=== PATIENT | female | born 1950 | race Caucasian/White ===

== ENCOUNTER → 2017-10-24 | Outpatient (CLI) | payer MEDICARE, OTHER ==
[~2017-10-24] MED LIST: ALPR0.5T GT; ALPR1TAB7 PO; ASPI81TA27 PO; FER325T PO; FLUO20CA19 PO; HALO2CON8 PO; IPRASOL41 IN; LAM100T PO; LORA2CON5 PO; MIDO5TAB PO; MORP2INJ4 PO; NOR10T PO; NUTR-709 PO
[2017-10-24 13:25] LABS: Basophils % (auto) 0.8 % (0.0-2.0); Eosinophils # (auto) 0.7 uL
[2017-10-24 13:27] LABS: Basophils # (auto) 0.1 uL; Hematocrit 37.5 % (36.0-46.0); Hemoglobin 12.6 g/dL (12.2-16.2); Lymphocytes # (auto) 1.6 uL; Lymphocytes % (auto) 24.1 % (10.0-50.0); Mean Corpuscular Hemoglobin 34.5 pg (28.0-32.0); Mean Corpuscular Hgb Conc. 33.7 g/dL (32.0-36.0); Mean Corpuscular Volume 102.5 fL (80.0-100.0); Monocytes # (auto) 0.5 uL; Monocytes % (auto) 7.3 % (0.0-12.0); Neutrophils # (auto) 3.8 uL; Neutrophils % (auto) 57.8 % (37.0-80.0); Nucleated Red Blood Cells % 0.2 %; Platelet Count (auto) 186 10^3/uL (140-450); Red Blood Cells 3.65 10^6/uL (4.0-5.20); Red Cell Distribution Width 14.8 % (11.8-14.3); White Blood Cell 6.5 10^3/uL (4.4-10.8)
[2017-10-24 13:40] LABS: INR 0.96 (0.9-1.15); Partial Thromboplastin Time 24.7 sec (23.78-33.04); Prothrombin Time 10.3 sec (9.27-12.13)
[2017-10-24 14:14] LABS: Urine Bacteria NONE SEEN /hpf (None Seen); Urine Blood Negative /uL (Negative); Urine Hyaline Cast FEW /lpf (0 - 2); Urine Mucus FEW (None Seen); Urine Specific Gravity 1.014 (1.001-1.035); Urine WBC 8 /hpf (0 - 5)
[2017-10-24 14:49] LABS: Albumin 3.5 g/dL (3.4-5.0); Calcium 9.1 mg/dL (8.5-10.1); Potassium 4.6 mmol/L (3.5-5.1)
[2017-10-24 14:52] LABS: Bilirubin, Total 0.5 mg/dL (0.2-1.0); Total Protein 7.2 g/dL (6.4-8.2)
== END | disposition home or self-care (01) ==
LOC: LAB 12:45
PROVIDERS: ATTEND Nurse Practitioner
DX: Z01.818 Encounter for other preprocedural examination (principal); F33.9 Major depressive disorder, recurrent, unspecified; I10 Essential (primary) hypertension; Z79.899 Other long term (current) drug therapy; Z86.2 Personal history of diseases of the blood and blood-forming organs and certain disorders involving the immune mechanism
CPT/HCPCS: 36415; 80053; 81001; 85025; 85610; 85730

== ENCOUNTER 2017-11-02 12:19 | Emergency (ER) | payer MEDICARE, OTHER ==
[~2017-11-02] VITALS: Ht 157.5 cm; Wt 64.0 kg
[2017-11-02 12:49] VITALS: BP 108/72
[2017-11-02] MEDS ORDERED: NALBUPHINE HCL 10 MG/1ml INJECTION IM ONE (13:15)
== END 2017-11-02 13:49 | disposition home or self-care (01) ==
LOC: ER 12:19
DX: M54.5 Low back pain (principal); M48.061 Spinal stenosis, lumbar region without neurogenic claudication; G89.29 Other chronic pain; M19.90 Unspecified osteoarthritis, unspecified site; I10 Essential (primary) hypertension; Z90.49 Acquired absence of other specified parts of digestive tract; Z79.899 Other long term (current) drug therapy; Z90.710 Acquired absence of both cervix and uterus
CPT/HCPCS: 96372; 99283; J2300

== ENCOUNTER → 2018-01-19 | Outpatient (CLI) | payer MEDICARE, OTHER ==
[2018-01-19 12:32] LABS: Urine Bacteria FEW /hpf (None Seen); Urine Blood Negative /uL (Negative); Urine Mucus FEW (None Seen); Urine Specific Gravity 1.015 (1.001-1.035); Urine WBC 12 /hpf (0 - 5)
[2018-01-19 12:41] LABS: Basophils # (auto) 0 uL; Lymphocytes # (auto) 1.3 uL; Monocytes # (auto) 0.4 uL; Neutrophils # (auto) 3.7 uL; Platelet Count (auto) 192 10^3/uL (140-450)
[2018-01-19 12:45] LABS: Potassium 4.3 mmol/L (3.5-5.1)
[2018-01-19 12:46] LABS: Basophils % (auto) 0.8 % (0.0-2.0); Eosinophils # (auto) 0.6 uL; Eosinophils % (auto) 9.4 % (0.0-7.0); Hematocrit 40.7 % (36.0-46.0); Hemoglobin 13.6 g/dL (12.2-16.2); Lymphocytes % (auto) 21.9 % (10.0-50.0); Mean Corpuscular Hemoglobin 35.2 pg (28.0-32.0); Mean Corpuscular Hgb Conc. 33.5 g/dL (32.0-36.0); Mean Corpuscular Volume 105.4 fL (80.0-100.0); Monocytes % (auto) 6.6 % (0.0-12.0); Neutrophils % (auto) 61.3 % (37.0-80.0); Nucleated Red Blood Cells % 0.3 %; Red Blood Cells 3.86 10^6/uL (4.0-5.20); Red Cell Distribution Width 14.2 % (11.8-14.3); White Blood Cell 6.1 10^3/uL (4.4-10.8)
[2018-01-19 12:54] LABS: BUN/Creatinine Ratio 9.2; Bilirubin, Total 0.5 mg/dL (0.2-1.0); Calcium 10.4 mg/dL (8.5-10.1); Total Protein 8.4 g/dL (6.4-8.2)
== END | disposition home or self-care (01) ==
LOC: LAB 11:12
PROVIDERS: ATTEND Nurse Practitioner
DX: E78.5 Hyperlipidemia, unspecified (principal); E31.8 Other polyglandular dysfunction
CPT/HCPCS: 36415; 80053; 80061; 80178; 81001; 84443; 85025

== ENCOUNTER → 2018-04-20 | Outpatient (CLI) | payer MEDICARE, OTHER ==
[2018-04-20 11:45] LABS: Potassium 4.1 mmol/L (3.5-5.1)
[2018-04-20 11:56] LABS: Albumin 3.5 g/dL (3.4-5.0); BUN/Creatinine Ratio 15.9; Bilirubin, Total 0.6 mg/dL (0.2-1.0); Calcium 9.6 mg/dL (8.5-10.1); Total Protein 7.2 g/dL (6.4-8.2)
== END | disposition home or self-care (01) ==
LOC: LAB 10:43
PROVIDERS: ATTEND Internal Medicine
DX: I10 Essential (primary) hypertension (principal); E03.9 Hypothyroidism, unspecified
CPT/HCPCS: 36415; 80053; 84439; 84443

== ENCOUNTER → 2018-04-26 | Outpatient (CLI) | payer MEDICARE, OTHER | END | disposition home or self-care (01) | LOC: LAB 14:24 | PROVIDERS: ATTEND Internal Medicine | DX: E03.9 Hypothyroidism, unspecified (principal); I10 Essential (primary) hypertension | CPT/HCPCS: 82270 ==

== ENCOUNTER → 2018-06-18 | Outpatient (CLI) | payer MEDICARE, OTHER ==
[2018-06-18 12:31] LABS: Urine Bacteria NONE SEEN /hpf (None Seen); Urine Blood Negative /uL (Negative); Urine Mucus FEW (None Seen); Urine Specific Gravity 1.016 (1.001-1.035); Urine WBC 21 /hpf (0 - 5)
[2018-06-18 12:35] LABS: Basophils # (auto) 0 uL; Basophils % (auto) 0.8 % (0.0-2.0); Eosinophils # (auto) 0.3 uL; Eosinophils % (auto) 7.6 % (0.0-7.0); Hematocrit 38.9 % (36.0-46.0); Hemoglobin 12.6 g/dL (12.2-16.2); Lymphocytes % (auto) 23.2 % (10.0-50.0); Mean Corpuscular Hemoglobin 31.5 pg (28.0-32.0); Mean Corpuscular Hgb Conc. 32.5 g/dL (32.0-36.0); Mean Corpuscular Volume 96.9 fL (80.0-100.0); Monocytes # (auto) 0.3 uL; Neutrophils # (auto) 2.7 uL; Neutrophils % (auto) 61.4 % (37.0-80.0); Platelet Count (auto) 173 10^3/uL (140-450); Red Blood Cells 4.01 10^6/uL (4.0-5.20); Red Cell Distribution Width 14.7 % (11.8-14.3); White Blood Cell 4.4 10^3/uL (4.4-10.8)
[2018-06-18 12:54] LABS: INR 0.92 (0.9-1.15); Partial Thromboplastin Time 24.6 sec (23.78-33.04); Prothrombin Time 9.9 sec (9.27-12.13)
[2018-06-18 12:56] LABS: Potassium 4.5 mmol/L (3.5-5.1)
[2018-06-18 13:07] LABS: Alcohol, Urine < 3.0 mg/dL (0-5); Amphetamine Screen, Urine NEGATIVE (NEGATIVE); Barbiturate Scree,Urine NEGATIVE (NEGATIVE); Benzodiazephine Screen, Urine NEGATIVE (NEGATIVE); Cannabinoid Screen, Urine NEGATIVE (NEGATIVE); Cocaine Screen, Urine NEGATIVE (NEGATIVE); Opiate Scree,Urine NEGATIVE (NEGATIVE); Phencyclidine Screen, Urine NEGATIVE (NEGATIVE)
[2018-06-18 13:08] LABS: Albumin 3.8 g/dL (3.4-5.0); Bilirubin, Total 0.7 mg/dL (0.2-1.0); Calcium 10.4 mg/dL (8.5-10.1); Total Protein 7.6 g/dL (6.4-8.2)
[2018-06-18 13:16] LABS: Free T4 (Free Thyroxine) 0.87 ng/dL (0.89-1.76)
[2018-06-18 13:17] LABS: Folate (Folic Acid) 15.87 ng/mL (5.38-24)
== END | disposition home or self-care (01) ==
LOC: LAB 10:44
PROVIDERS: ATTEND Internal Medicine
DX: E03.9 Hypothyroidism, unspecified (principal); I10 Essential (primary) hypertension; R06.02 Shortness of breath; E11.65 Type 2 diabetes mellitus with hyperglycemia; F11.20 Opioid dependence, uncomplicated
CPT/HCPCS: 36415; 80053; 80061; 80178; 80307; 81001; 82607; 82746; 83036; 84439; 84443; 85025; 85610; 85730

== ENCOUNTER → 2018-07-06 | Outpatient (CLI) | payer MEDICARE, OTHER ==
[2018-07-06 16:11] LABS: Alcohol, Urine < 3.0 mg/dL (0-5); Amphetamine Screen, Urine NEGATIVE (NEGATIVE); Barbiturate Scree,Urine NEGATIVE (NEGATIVE); Benzodiazephine Screen, Urine NEGATIVE (NEGATIVE); Cannabinoid Screen, Urine NEGATIVE (NEGATIVE); Cocaine Screen, Urine NEGATIVE (NEGATIVE); Opiate Scree,Urine NEGATIVE (NEGATIVE); Phencyclidine Screen, Urine NEGATIVE (NEGATIVE)
== END | disposition home or self-care (01) ==
LOC: LAB 15:06
PROVIDERS: ATTEND Psychiatry & Neurology Neurology
DX: M41.86 Other forms of scoliosis, lumbar region (principal)
CPT/HCPCS: 80307

== ENCOUNTER → 2019-01-24 | Outpatient (CLI) | payer MEDICARE, OTHER ==
[~2019-01-24] MED LIST changes: +ASPI-404 PO; -ASPI81TA27 PO; -MIDO5TAB PO; +MIDO5TAB2 PO
[2019-01-24 15:28] LABS: Basophils # (auto) 0 uL; Basophils % (auto) 0.4 % (0.0-2.0); Eosinophils # (auto) 0.2 uL; Eosinophils % (auto) 5.6 % (0.0-7.0); Hematocrit 38.6 % (36.0-46.0); Hemoglobin 12.7 g/dL (12.2-16.2); Lymphocytes # (auto) 1.3 uL; Lymphocytes % (auto) 29.1 % (10.0-50.0); Mean Corpuscular Hemoglobin 32.8 pg (28.0-32.0); Mean Corpuscular Hgb Conc. 32.9 g/dL (32.0-36.0); Mean Corpuscular Volume 99.7 fL (80.0-100.0); Monocytes # (auto) 0.4 uL; Monocytes % (auto) 8.1 % (0.0-12.0); Neutrophils # (auto) 2.5 uL; Neutrophils % (auto) 56.8 % (37.0-80.0); Nucleated Red Blood Cells % 0.2 %; Platelet Count (auto) 170 10^3/uL (140-450); Red Blood Cells 3.87 10^6/uL (4.0-5.20); Red Cell Distribution Width 14.3 % (11.8-14.3); White Blood Cell 4.4 10^3/uL (4.4-10.8)
[2019-01-24 15:42] LABS: INR 0.99 (0.9-1.15); Partial Thromboplastin Time 23.4 sec (23.64-32.05)
[2019-01-24 15:43] LABS: Urine Bacteria FEW /hpf (None Seen); Urine Blood Negative /uL (Negative); Urine Hyaline Cast FEW /lpf (0 - 2); Urine Mucus FEW (None Seen); Urine Specific Gravity 1.004 (1.001-1.035); Urine WBC 4 /hpf (0 - 5)
[2019-01-24 15:46] LABS: BUN/Creatinine Ratio 13.9; Calcium 9.7 mg/dL (8.5-10.1); Potassium 4.2 mmol/L (3.5-5.1)
== END | disposition home or self-care (01) ==
LOC: LAB 15:09
PROVIDERS: ATTEND Anesthesiology Pain Medicine
DX: R79.1 Abnormal coagulation profile (principal); Z79.01 Long term (current) use of anticoagulants
CPT/HCPCS: 36415; 80048; 81001; 85025; 85610; 85730

== ENCOUNTER → 2019-02-11 | Outpatient (CLI) | payer MEDICARE, OTHER ==
[2019-02-11 15:11] LABS: Basophils # (auto) 0 uL; Basophils % (auto) 0.6 % (0.0-2.0); Eosinophils # (auto) 0.3 uL; Eosinophils % (auto) 4.7 % (0.0-7.0); Hematocrit 36.9 % (36.0-46.0); Hemoglobin 12.3 g/dL (12.2-16.2); Lymphocytes # (auto) 1.1 uL; Lymphocytes % (auto) 19.3 % (10.0-50.0); Mean Corpuscular Hemoglobin 33.1 pg (28.0-32.0); Mean Corpuscular Hgb Conc. 33.4 g/dL (32.0-36.0); Mean Corpuscular Volume 98.9 fL (80.0-100.0); Monocytes # (auto) 0.3 uL; Monocytes % (auto) 5.6 % (0.0-12.0); Neutrophils # (auto) 3.9 uL; Neutrophils % (auto) 69.8 % (37.0-80.0); Platelet Count (auto) 155 10^3/uL (140-450); Red Blood Cells 3.73 10^6/uL (4.0-5.20); Red Cell Distribution Width 14.5 % (11.8-14.3); White Blood Cell 5.6 10^3/uL (4.4-10.8)
[2019-02-11 15:14] LABS: INR 0.98 (0.9-1.15); Partial Thromboplastin Time 24.6 sec (23.64-32.05)
[2019-02-11 15:29] LABS: Urine Bacteria FEW /hpf (None Seen); Urine Blood Negative /uL (Negative); Urine Mucus FEW (None Seen); Urine Specific Gravity 1.014 (1.001-1.035); Urine WBC 228 /hpf (0 - 5)
[2019-02-11 15:30] LABS: Calcium 9.1 mg/dL (8.5-10.1); Potassium 4.5 mmol/L (3.5-5.1)
[2019-02-11 15:32] LABS: BUN/Creatinine Ratio 12.2
== END | disposition home or self-care (01) ==
LOC: LAB 14:22
PROVIDERS: ATTEND Anesthesiology Pain Medicine
DX: R79.1 Abnormal coagulation profile (principal); Z79.01 Long term (current) use of anticoagulants
CPT/HCPCS: 36415; 80048; 81001; 85025; 85610; 85730

== ENCOUNTER → 2019-06-05 | Outpatient (CLI) | payer MEDICARE, MEDICAID ==
[~2019-06-05] MED LIST changes: -ASPI-404 PO; +ASPI-543 PO
== END | disposition home or self-care (01) ==
LOC: LAB 11:49
PROVIDERS: ATTEND Internal Medicine
DX: I10 Essential (primary) hypertension (principal); F31.81 Bipolar II disorder; E03.9 Hypothyroidism, unspecified
CPT/HCPCS: 36415; 80178; 84443

== ENCOUNTER → 2019-11-06 | Outpatient (CLI) | payer MEDICARE, MEDICAID ==
[2019-11-06 09:42] LABS: Basophils # (auto) 0 10 ^3/uL (0-0.2); Eosinophils # (auto) 0.3 10 ^3/uL (0-0.8); Eosinophils % (auto) 9.8 % (0.0-7.0); Hematocrit 35.9 % (36.0-46.0); Hemoglobin 11.4 g/dL (12.2-16.2); Lymphocytes # (auto) 0.9 10 ^3/uL (0.4-5.4); Mean Corpuscular Hemoglobin 30.8 pg (28.0-32.0); Mean Corpuscular Hgb Conc. 31.8 g/dL (32.0-36.0); Mean Corpuscular Volume 96.7 fL (80.0-100.0); Monocytes # (auto) 0.2 10 ^3/uL (0-1.3); Monocytes % (auto) 7.7 % (0.0-12.0); Neutrophils # (auto) 1.7 10 ^3/uL (1.6-8.6); Neutrophils % (auto) 53.5 % (37.0-80.0); Platelet Count (auto) 158 10^3/uL (140-450); Red Blood Cells 3.71 10^6/uL (4.0-5.20); Red Cell Distribution Width 16.8 % (11.8-14.3); White Blood Cell 3.2 10^3/uL (4.4-10.8)
[2019-11-06 10:07] LABS: Potassium 4.5 mmol/L (3.5-5.1)
[2019-11-06 10:15] LABS: Albumin 3.5 g/dL (3.4-5.0); BUN/Creatinine Ratio 16.3; Bilirubin, Total 0.5 mg/dL (0.2-1.0); Calcium 9.6 mg/dL (8.5-10.1); Total Protein 6.8 g/dL (6.4-8.2)
== END | disposition home or self-care (01) ==
LOC: LAB 09:21
PROVIDERS: ATTEND Internal Medicine
DX: I10 Essential (primary) hypertension (principal); F31.81 Bipolar II disorder; F41.9 Anxiety disorder, unspecified; E03.9 Hypothyroidism, unspecified; Z12.11 Encounter for screening for malignant neoplasm of colon; E11.65 Type 2 diabetes mellitus with hyperglycemia
CPT/HCPCS: 36415; 80053; 80061; 83002; 83036; 84443; 85025

== ENCOUNTER 2020-06-27 11:21 | Inpatient (IN) | payer OTHER, MEDICAID ==
[~2020-06-27] VITALS: Ht 154.9 cm; Wt 61.1 kg
[~2020-06-27 11:21] MED LIST changes: -MIDO5TAB2 PO; +MIDO5TAB3 PO
[2020-06-27 14:04] LABS: INR 1.05 (0.9-1.15); Partial Thromboplastin Time 25.5 sec (23.0-31.2)
[2020-06-27 14:05] LABS: Basophils # (auto) 0 10 ^3/uL (0-0.2); Basophils % (auto) 0.4 % (0.0-2.0); Eosinophils # (auto) 0.4 10 ^3/uL (0-0.8); Eosinophils % (auto) 5.9 % (0.0-7.0); Hemoglobin 11.6 g/dL (12.2-16.2); Lymphocytes # (auto) 0.9 10 ^3/uL (0.4-5.4); Lymphocytes % (auto) 14.3 % (10.0-50.0); Mean Corpuscular Hemoglobin 33.3 pg (28.0-32.0); Mean Corpuscular Hgb Conc. 33.2 g/dL (32.0-36.0); Mean Corpuscular Volume 100.5 fL (80.0-100.0); Monocytes # (auto) 0.4 10 ^3/uL (0-1.3); Monocytes % (auto) 6.2 % (0.0-12.0); Neutrophils # (auto) 4.8 10 ^3/uL (1.6-8.6); Neutrophils % (auto) 73.2 % (37.0-80.0); Nucleated Red Blood Cells % 0.1 %; Red Blood Cells 3.48 10^6/uL (4.0-5.20); White Blood Cell 6.6 10^3/uL (4.4-10.8)
[2020-06-27 14:10] LABS: Albumin 3.5 g/dL (3.4-5.0); Anion Gap 6 (5-15); Blood Urea Nitrogen 19 mg/dL (7-18); Calcium 9.9 mg/dL (8.5-10.1); Carbon Dioxide 22 mmol/L (21-32); Chloride 110 mmol/L (98-107); Glucose 89 mg/dL (74-106); Magnesium 2.1 mg/dL (1.6-2.6); Sodium 138 mmol/L (136-145)
[2020-06-27 14:13] LABS: BUN/Creatinine Ratio 18.8; GFR African American 70 mL/min; GFR Non-African American 58 mL/min
[2020-06-27 14:22] LABS: Alanine Aminotransferase 16 U/L (13-56); Alkaline Phosphatase 81 U/L (45-117); Aspartate Aminotransferase 15 U/L (15-37); Bilirubin, Total 0.7 mg/dL (0.2-1.0); Total Protein 7.4 g/dL (6.4-8.2)
[2020-06-27] MEDS ORDERED: ASPirin-EC 81 mg tab PO ONE (14:45)
[2020-06-27] MEDS ORDERED: TEMAZEPAM 15 MG CAP PO PRN (15:00)
[2020-06-27] MEDS ORDERED: NITROGLYCERIN 0.4 MG SL TAB SL PRN (15:00)
[2020-06-27] MEDS ORDERED: ALBUTEROL SULF 2.5 MG/0.5ML(0.5%) NEB SOLN NEB PRN (15:00)
[2020-06-27] MEDS ORDERED: ONDANSETRON HCL 4 MG/2 ML VIAL IV PRN (15:00)
[2020-06-27] MEDS ORDERED: LACTULOSE 20Gm/30ML SOLN PO PRN (15:00)
[2020-06-27] MEDS ORDERED: ACETAMINOPHEN 500 MG TAB PO PRN (15:00)
[2020-06-27] MEDS ORDERED: traMADol HCL 50 MG TAB PO PRN (15:00)
[2020-06-27 15:05] LABS: Urine Bacteria MANY /hpf (None Seen); Urine Blood Negative /uL (Negative); Urine Specific Gravity 1.005 (1.001-1.035); Urine WBC 8 /hpf (0 - 5)
[2020-06-27] MEDS ORDERED: HALOPERIDOL 5 MG TAB PO PRN (15:15)
[2020-06-27] MEDS ORDERED: IPRATROPIUM ALBUTEROL IN PRN (15:15)
[2020-06-27] MEDS ORDERED: ALPRAZolam 0.5 MG TAB PO PRN (15:15)
[2020-06-27] MEDS ORDERED: DEXTROSE (50%) 50ML SYRG IV PRN (15:30)
[2020-06-27] MEDS ORDERED: cefTRIAXone 1GM/50ML D5W 50 ML IV ONE (16:30)
[2020-06-27] MEDS ORDERED: IOHEXOL 350 MG/ML 100ML IJ ONE (16:32)
[2020-06-27 17:00] VITALS: BP 129/70
[2020-06-27] MEDS ORDERED: IPRATROPIUM BROM 0.5 MG/2.5ML INH SOL NEB PRN (17:30)
[2020-06-27] MEDS: ACCU-CHEK COMFORT CURVE STRIP VI SCH (18:38)
[2020-06-27] MEDS: SODIUM CHLORIDE 0.9% 1,000 ML IV SCH (18:39)
[2020-06-27] MEDS: MIDODRINE HCL 10 MG TAB PO SCH (18:49)
[2020-06-27] MEDS: ATORVASTATIN 20 MG TAB PO SCH (21:44)
[2020-06-27] MEDS: FAMOTIDINE 20 MG TAB PO SCH (21:44)
[2020-06-27] MEDS: DOXYCYCLINE 100 MG TAB/CAP PO SCH (21:44)
[2020-06-27] MEDS: lamoTRIgine 100 MG TAB PO SCH (21:44)
[2020-06-27 22:00] VITALS: BP 136/76
[2020-06-28] VITALS (7 sets, daily range): BP systolic 104–147; BP diastolic 51–77
[2020-06-28] MEDS: ACCU-CHEK COMFORT CURVE STRIP VI SCH ×2 (00:37→06:04)
[2020-06-28] MEDS: MIDODRINE HCL 10 MG TAB PO SCH ×2 (06:04→18:18)
[2020-06-28] MEDS: SODIUM CHLORIDE 0.9% 1,000 ML IV SCH ×2 (06:04→17:40)
[2020-06-28] MEDS: cefTRIAXone 1GM/50ML D5W 50 ML IV SCH (09:37)
[2020-06-28] MEDS: FLUoxetine HCL 20 MG CAP PO SCH (09:37)
[2020-06-28] MEDS: NITROGLYCERIN 0.2MG/HR TOPICAL PATCH TD SCH (09:39)
[2020-06-28] MEDS: DOXYCYCLINE 100 MG TAB/CAP PO SCH ×2 (14:12→21:30)
[2020-06-28] MEDS: FERROUS SULFATE 325mg EC TAB PO SCH (14:12)
[2020-06-28] MEDS: FAMOTIDINE 20 MG TAB PO SCH ×2 (14:12→21:31)
[2020-06-28] MEDS: ASPirin 81 mg TAB PO SCH (14:12)
[2020-06-28] MEDS: MORPHINE SULFATE INJECTION 2 MG/ML SYRG IV PRN (16:29)
[2020-06-28] MEDS ORDERED: IOHEXOL 350 MG/ML 100ML IJ ONE (16:30)
[2020-06-28] MEDS: Ensure HIGH Protein Chocolate 8oz Bottle PO SCH (18:18)
[2020-06-28] MEDS: lamoTRIgine 100 MG TAB PO SCH (21:31)
[2020-06-28] MEDS: ATORVASTATIN 20 MG TAB PO SCH (21:31)
[2020-06-28] MEDS: APIXABAN 5 MG TAB PO SCH (21:31)
[2020-06-29 05:00] VITALS: BP 117/59
[2020-06-29 06:00] LABS: Basophils # (auto) 0 10 ^3/uL (0-0.2); Basophils % (auto) 1.2 % (0.0-2.0); Eosinophils # (auto) 0.4 10 ^3/uL (0-0.8); Eosinophils % (auto) 12.9 % (0.0-7.0); Hematocrit 27.9 % (36.0-46.0); Hemoglobin 9.4 g/dL (12.2-16.2); Lymphocytes # (auto) 0.8 10 ^3/uL (0.4-5.4); Lymphocytes % (auto) 28.3 % (10.0-50.0); Mean Corpuscular Hemoglobin 33.5 pg (28.0-32.0); Mean Corpuscular Hgb Conc. 33.5 g/dL (32.0-36.0); Mean Corpuscular Volume 99.9 fL (80.0-100.0); Monocytes # (auto) 0.3 10 ^3/uL (0-1.3); Monocytes % (auto) 9.1 % (0.0-12.0); Neutrophils # (auto) 1.4 10 ^3/uL (1.6-8.6); Neutrophils % (auto) 48.5 % (37.0-80.0); Nucleated Red Blood Cells % 0.3 %; Red Blood Cells 2.79 10^6/uL (4.0-5.20); Red Cell Distribution Width 15.8 % (11.8-14.3)
[2020-06-29] MEDS: MIDODRINE HCL 10 MG TAB PO SCH ×2 (06:00→17:42)
[2020-06-29] MEDS: SODIUM CHLORIDE 0.9% 1,000 ML IV SCH ×2 (06:18→20:20)
[2020-06-29 06:24] LABS: Chloride 110 mmol/L (98-107); Potassium 4.3 mmol/L (3.5-5.1); Sodium 140 mmol/L (136-145)
[2020-06-29 06:38] LABS: Anion Gap 7 (5-15); BUN/Creatinine Ratio 15.4; Blood Urea Nitrogen 16 mg/dL (7-18); Calcium 9.3 mg/dL (8.5-10.1); Carbon Dioxide 23 mmol/L (21-32); GFR African American 67 mL/min; GFR Non-African American 56 mL/min; Glucose 83 mg/dL (74-106)
[2020-06-29] MEDS: Ensure HIGH Protein Chocolate 8oz Bottle PO SCH ×3 (08:00→17:41)
[2020-06-29] MEDS ORDERED: ADENOSINE 52 MG in GIVE UN-DILUTED 0 ML IV STA (08:47)
[2020-06-29 09:00] VITALS: BP 138/76
[2020-06-29 09:15] VITALS: BP 119/74
[2020-06-29] MEDS: FAMOTIDINE 20 MG TAB PO SCH ×2 (10:00→21:28)
[2020-06-29] MEDS: ASPirin 81 mg TAB PO SCH (11:00)
[2020-06-29] MEDS: FLUoxetine HCL 20 MG CAP PO SCH (11:00)
[2020-06-29] MEDS: DOXYCYCLINE 100 MG TAB/CAP PO SCH ×2 (11:00→21:28)
[2020-06-29] MEDS: APIXABAN 5 MG TAB PO SCH ×2 (11:01→21:27)
[2020-06-29] MEDS: FERROUS SULFATE 325mg EC TAB PO SCH (11:01)
[2020-06-29] MEDS: NITROGLYCERIN 0.2MG/HR TOPICAL PATCH TD SCH (11:04)
[2020-06-29] MEDS: cefTRIAXone 1GM/50ML D5W 50 ML IV SCH (11:07)
[2020-06-29 12:56] VITALS: BP 155/73
[2020-06-29 17:00] VITALS: BP 151/93
[2020-06-29] MEDS: lamoTRIgine 100 MG TAB PO SCH (21:27)
[2020-06-29] MEDS: ATORVASTATIN 20 MG TAB PO SCH (21:28)
[2020-06-29 22:00] VITALS: BP 150/77
[2020-06-30] MEDS: SODIUM CHLORIDE 0.9% 1,000 ML IV SCH ×2 (04:12→22:12)
[2020-06-30 05:00] VITALS: BP 122/62
[2020-06-30] MEDS: MIDODRINE HCL 10 MG TAB PO SCH ×2 (05:32→18:00)
[2020-06-30] MEDS: Ensure HIGH Protein Chocolate 8oz Bottle PO SCH ×3 (08:00→18:00)
[2020-06-30 08:40] VITALS: BP 155/85
[2020-06-30] MEDS: ASPirin 81 mg TAB PO SCH (08:44)
[2020-06-30] MEDS: cefTRIAXone 1GM/50ML D5W 50 ML IV SCH (08:44)
[2020-06-30] MEDS: FERROUS SULFATE 325mg EC TAB PO SCH (08:44)
[2020-06-30] MEDS: APIXABAN 5 MG TAB PO SCH ×2 (08:45→22:11)
[2020-06-30] MEDS: FAMOTIDINE 20 MG TAB PO SCH ×2 (08:45→22:12)
[2020-06-30] MEDS: FLUoxetine HCL 20 MG CAP PO SCH (08:45)
[2020-06-30] MEDS: DOXYCYCLINE 100 MG TAB/CAP PO SCH ×2 (08:45→22:12)
[2020-06-30] MEDS: NITROGLYCERIN 0.2MG/HR TOPICAL PATCH TD SCH (08:46)
[2020-06-30 09:12] LABS: Basophils # (auto) 0 10 ^3/uL (0-0.2); Basophils % (auto) 1.3 % (0.0-2.0); Eosinophils # (auto) 0.4 10 ^3/uL (0-0.8); Eosinophils % (auto) 11.4 % (0.0-7.0); Hematocrit 29.7 % (36.0-46.0); Hemoglobin 9.9 g/dL (12.2-16.2); Lymphocytes # (auto) 0.8 10 ^3/uL (0.4-5.4); Mean Corpuscular Hemoglobin 33.3 pg (28.0-32.0); Mean Corpuscular Hgb Conc. 33.2 g/dL (32.0-36.0); Mean Corpuscular Volume 100.2 fL (80.0-100.0); Monocytes # (auto) 0.2 10 ^3/uL (0-1.3); Monocytes % (auto) 6.7 % (0.0-12.0); Neutrophils # (auto) 1.8 10 ^3/uL (1.6-8.6); Neutrophils % (auto) 54.6 % (37.0-80.0); Nucleated Red Blood Cells % 0.1 %; Red Blood Cells 2.97 10^6/uL (4.0-5.20); White Blood Cell 3.2 10^3/uL (4.4-10.8)
[2020-06-30 09:25] LABS: BUN/Creatinine Ratio 11.5; Calcium 9.2 mg/dL (8.5-10.1); Potassium 4.1 mmol/L (3.5-5.1)
[2020-06-30 12:42] VITALS: BP 157/75
[2020-06-30 17:00] VITALS: BP 124/59
[2020-06-30 19:50] VITALS: BP 124/59
[2020-06-30 22:00] VITALS: BP 129/69
[2020-06-30] MEDS: lamoTRIgine 100 MG TAB PO SCH (22:12)
[2020-06-30] MEDS: ATORVASTATIN 20 MG TAB PO SCH (22:12)
[2020-07-01 05:00] VITALS: BP 131/68
[2020-07-01] MEDS: MIDODRINE HCL 10 MG TAB PO SCH ×2 (05:36→18:00)
[2020-07-01] MEDS: MORPHINE SULFATE INJECTION 2 MG/ML SYRG IV PRN (06:14)
[2020-07-01] MEDS: Ensure HIGH Protein Chocolate 8oz Bottle PO SCH ×3 (08:00→17:51)
[2020-07-01 09:00] VITALS: BP 153/75
[2020-07-01] MEDS: cefTRIAXone 1GM/50ML D5W 50 ML IV SCH (09:39)
[2020-07-01] MEDS: ASPirin 81 mg TAB PO SCH (09:39)
[2020-07-01] MEDS: FERROUS SULFATE 325mg EC TAB PO SCH (09:39)
[2020-07-01] MEDS: FAMOTIDINE 20 MG TAB PO SCH ×2 (09:40→21:33)
[2020-07-01] MEDS: DOXYCYCLINE 100 MG TAB/CAP PO SCH ×2 (09:40→21:33)
[2020-07-01] MEDS: FLUoxetine HCL 20 MG CAP PO SCH (09:40)
[2020-07-01] MEDS: APIXABAN 5 MG TAB PO SCH ×2 (09:40→21:32)
[2020-07-01] MEDS: NITROGLYCERIN 0.2MG/HR TOPICAL PATCH TD SCH (09:42)
[2020-07-01] MEDS: SODIUM CHLORIDE 0.9% 1,000 ML IV SCH (12:01)
[2020-07-01 13:00] VITALS: BP 152/85
[2020-07-01 17:00] VITALS: BP 149/70
[2020-07-01] MEDS ORDERED: LABETALOL HCL 5 MG/ML 4ML SYRINGE IV PRN (18:15)
[2020-07-01] MEDS: lamoTRIgine 100 MG TAB PO SCH (21:32)
[2020-07-01] MEDS: ATORVASTATIN 20 MG TAB PO SCH (21:32)
[2020-07-01 22:00] VITALS: BP 152/80
[2020-07-02] MEDS: SODIUM CHLORIDE 0.9% 1,000 ML IV SCH ×2 (01:40→15:00)
[2020-07-02 05:00] VITALS: BP 132/76
[2020-07-02] MEDS: MIDODRINE HCL 10 MG TAB PO SCH (06:00)
[2020-07-02 09:00] VITALS: BP 135/72
[2020-07-02] MEDS: cefTRIAXone 1GM/50ML D5W 50 ML IV SCH (09:08)
[2020-07-02] MEDS: Ensure HIGH Protein Chocolate 8oz Bottle PO SCH ×2 (09:08→12:47)
[2020-07-02] MEDS: APIXABAN 5 MG TAB PO SCH (09:09)
[2020-07-02] MEDS: FERROUS SULFATE 325mg EC TAB PO SCH (09:09)
[2020-07-02] MEDS: FAMOTIDINE 20 MG TAB PO SCH (09:09)
[2020-07-02] MEDS: ASPirin 81 mg TAB PO SCH (09:09)
[2020-07-02] MEDS: FLUoxetine HCL 20 MG CAP PO SCH (09:10)
[2020-07-02] MEDS: DOXYCYCLINE 100 MG TAB/CAP PO SCH (09:10)
[2020-07-02] MEDS: NITROGLYCERIN 0.2MG/HR TOPICAL PATCH TD SCH (09:11)
[2020-07-02 12:59] VITALS: BP 142/110
[2020-07-05] MEDS ORDERED: APIXABAN 5 MG TAB PO SCH (22:00)
== END 2020-07-02 16:00 | disposition home or self-care (01) | DRG 175 ==
LOC: ER 11:21 → EDBD 11:21 → TELE 15:11 → TELE-WESTW 17:16
PROVIDERS: ADMIT Internal Medicine; ATTEND Family Medicine
DX: I26.99 Other pulmonary embolism without acute cor pulmonale (principal); J18.9 Pneumonia, unspecified organism; I82.401 Acute embolism and thrombosis of unspecified deep veins of right lower extremity; R09.1 Pleurisy; R00.1 Bradycardia, unspecified; D63.8 Anemia in other chronic diseases classified elsewhere; E11.21 Type 2 diabetes mellitus with diabetic nephropathy; F41.9 Anxiety disorder, unspecified; F31.9 Bipolar disorder, unspecified; M81.0 Age-related osteoporosis without current pathological fracture; G89.29 Other chronic pain; E11.22 Type 2 diabetes mellitus with diabetic chronic kidney disease; N18.31 Chronic kidney disease, stage 3a; E11.40 Type 2 diabetes mellitus with diabetic neuropathy, unspecified; D50.9 Iron deficiency anemia, unspecified; J20.9 Acute bronchitis, unspecified; I12.9 Hypertensive chronic kidney disease with stage 1 through stage 4 chronic kidney disease, or unspecified chronic kidney disease; M19.90 Unspecified osteoarthritis, unspecified site; Z20.822 Contact with and (suspected) exposure to COVID-19; Z82.49 Family history of ischemic heart disease and other diseases of the circulatory system; Z83.3 Family history of diabetes mellitus; Z90.710 Acquired absence of both cervix and uterus; Z90.49 Acquired absence of other specified parts of digestive tract
CPT/HCPCS: 36415; 71045; 71275; 78452; 80048; 80053; 81001; 82550; 82962; 83036; 83605; 83735; 83880; 84443; 84484; 85025; 85379; 85610; 85652; 85730; 86141; 87040; 87086; 87426; 93005; 93017; 93970; 97116; 97163; 97530; G0378; J0153; J0696; J3490

== ENCOUNTER 2020-07-14 13:30 | Emergency (ER) | payer OTHER, MEDICAID ==
[~2020-07-14] VITALS: Ht 162.6 cm; Wt 63.5 kg
[2020-07-14] MEDS ORDERED: cloNIDine HCL 0.1 MG TAB PO ONE (16:30)
[2020-07-14] MEDS ORDERED: ACETAMINOPHEN 325 MG TAB PO ONE (16:30)
[2020-07-14 17:49] VITALS: BP 152/77
[2020-07-14 17:50] LABS: Alanine Aminotransferase 16 U/L (13-56); Albumin 3.5 g/dL (3.4-5.0); Anion Gap 6 (5-15); Basophils # (auto) 0 10 ^3/uL (0-0.2); Basophils % (auto) 0.7 % (0.0-2.0); Blood Urea Nitrogen 8 mg/dL (7-18); Calcium 9.1 mg/dL (8.5-10.1); Carbon Dioxide 24 mmol/L (21-32); Chloride 111 mmol/L (98-107); Eosinophils # (auto) 0.2 10 ^3/uL (0-0.8); Eosinophils % (auto) 8.8 % (0.0-7.0); Glucose 87 mg/dL (74-106); Hematocrit 32.6 % (36.0-46.0); Hemoglobin 10.6 g/dL (12.2-16.2); Lymphocytes % (auto) 36.4 % (10.0-50.0); Mean Corpuscular Hemoglobin 32.6 pg (28.0-32.0); Mean Corpuscular Hgb Conc. 32.5 g/dL (32.0-36.0); Mean Corpuscular Volume 100.2 fL (80.0-100.0); Monocytes # (auto) 0.2 10 ^3/uL (0-1.3); Monocytes % (auto) 8.1 % (0.0-12.0); Neutrophils # (auto) 1.2 10 ^3/uL (1.6-8.6); Nucleated Red Blood Cells % 0.4 %; Potassium 3.8 mmol/L (3.5-5.1); Red Blood Cells 3.25 10^6/uL (4.0-5.20); Red Cell Distribution Width 16.3 % (11.8-14.3); Sodium 141 mmol/L (136-145); White Blood Cell 2.6 10^3/uL (4.4-10.8)
[2020-07-14 17:58] LABS: Alkaline Phosphatase 60 U/L (45-117); Aspartate Aminotransferase 21 U/L (15-37); BUN/Creatinine Ratio 8.9; Bilirubin, Total 0.5 mg/dL (0.2-1.0); GFR African American 80 mL/min; GFR Non-African American 66 mL/min; Total Protein 6.6 g/dL (6.4-8.2)
== END 2020-07-15 04:54 | disposition home or self-care (01) ==
LOC: ER 13:30 → EDBD 13:30 → EDUNIT# 13:30 → ER 22:30
DX: F41.0 Panic disorder [episodic paroxysmal anxiety] (principal); R51.9 Headache, unspecified; I10 Essential (primary) hypertension; Z90.49 Acquired absence of other specified parts of digestive tract; Z90.710 Acquired absence of both cervix and uterus; Z86.2 Personal history of diseases of the blood and blood-forming organs and certain disorders involving the immune mechanism; Z79.82 Long term (current) use of aspirin; Z79.899 Other long term (current) drug therapy
CPT/HCPCS: 36415; 70450; 71046; 80053; 84484; 85025; 93005

== ENCOUNTER 2020-07-19 20:45 | Emergency (ER) | payer OTHER, MEDICAID ==
[~2020-07-19] VITALS: Ht 162.6 cm; Wt 72.6 kg
[~2020-07-19 20:45] MED LIST changes: +MIDO5TAB2 PO; -MIDO5TAB3 PO
[2020-07-19] MEDS ORDERED: LOSARTAN POTASSIUM 25 MG TAB PO ONE (22:30)
[2020-07-20 00:03] LABS: Basophils # (auto) 0 10 ^3/uL (0-0.2); Basophils % (auto) 0.9 % (0.0-2.0); Eosinophils # (auto) 0.2 10 ^3/uL (0-0.8); Eosinophils % (auto) 7.9 % (0.0-7.0); Hematocrit 35.6 % (36.0-46.0); Hemoglobin 11.7 g/dL (12.2-16.2); Lymphocytes # (auto) 0.9 10 ^3/uL (0.4-5.4); Lymphocytes % (auto) 29.5 % (10.0-50.0); Mean Corpuscular Hemoglobin 32.7 pg (28.0-32.0); Mean Corpuscular Volume 99.2 fL (80.0-100.0); Monocytes # (auto) 0.3 10 ^3/uL (0-1.3); Monocytes % (auto) 9.9 % (0.0-12.0); Neutrophils # (auto) 1.6 10 ^3/uL (1.6-8.6); Neutrophils % (auto) 51.8 % (37.0-80.0); Nucleated Red Blood Cells % 0.1 %; Platelet Count (auto) 115 10^3/uL (140-450); Red Blood Cells 3.59 10^6/uL (4.0-5.20); Red Cell Distribution Width 16.4 % (11.8-14.3); White Blood Cell 3.1 10^3/uL (4.4-10.8)
[2020-07-20 00:20] LABS: Albumin 3.9 g/dL (3.4-5.0); BUN/Creatinine Ratio 10.8; Calcium 9.6 mg/dL (8.5-10.1)
[2020-07-20 00:23] LABS: Bilirubin, Total 0.6 mg/dL (0.2-1.0); Total Protein 7.2 g/dL (6.4-8.2)
[2020-07-20 06:06] VITALS: BP 165/78
== END 2020-07-20 08:35 | disposition home or self-care (01) ==
LOC: EDBD 20:45 → ER 20:54
DX: M54.2 Cervicalgia (principal); M54.5 Low back pain; M25.511 Pain in right shoulder; M79.601 Pain in right arm; M79.18 Myalgia, other site; W10.8XXA Fall (on) (from) other stairs and steps, initial encounter; Y93.89 Activity, other specified; Y92.89 Other specified places as the place of occurrence of the external cause; Y99.8 Other external cause status
CPT/HCPCS: 36415; 70450; 71045; 72125; 72192; 80053; 85025

== ENCOUNTER 2021-07-16 13:22 | Inpatient (IN) | payer OTHER, MEDICAID ==
[~2021-07-16] VITALS: Ht 154.9 cm; Wt 53.9 kg
[~2021-07-16 13:22] MED LIST changes: -MIDO5TAB2 PO; +MIDO5TAB3 PO
[2021-07-16 14:57] LABS: Basophils # (auto) 0 10 ^3/uL (0-0.2); Basophils % (auto) 0.8 % (0.0-2.0); Eosinophils # (auto) 0.2 10 ^3/uL (0-0.8); Eosinophils % (auto) 4.4 % (0.0-7.0); Hematocrit 38.9 % (36.0-46.0); Hemoglobin 13.2 g/dL (12.2-16.2); Lymphocytes % (auto) 25.8 % (10.0-50.0); Mean Corpuscular Hemoglobin 33.4 pg (28.0-32.0); Mean Corpuscular Hgb Conc. 33.9 g/dL (32.0-36.0); Mean Corpuscular Volume 98.5 fL (80.0-100.0); Monocytes # (auto) 0.3 10 ^3/uL (0-1.3); Monocytes % (auto) 6.4 % (0.0-12.0); Neutrophils # (auto) 2.5 10 ^3/uL (1.6-8.6); Neutrophils % (auto) 62.6 % (37.0-80.0); Red Blood Cells 3.95 10^6/uL (4.0-5.20); Red Cell Distribution Width 14.2 % (11.8-14.3)
[2021-07-16 15:18] LABS: Calcium 10.6 mg/dL (8.5-10.1); Potassium 4.5 mmol/L (3.5-5.1)
[2021-07-16 15:24] LABS: Albumin 4.1 g/dL (3.4-5.0); Bilirubin, Total 0.7 mg/dL (0.2-1.0); Magnesium 2.9 mg/dL (1.6-2.6); Total Protein 8.2 g/dL (6.4-8.2)
[2021-07-16] MEDS ORDERED: NITROGLYCERIN 0.4 MG SL TAB SL PRN (21:00)
[2021-07-16] MEDS ORDERED: NITROGLYCERIN 0.4 MG SL TAB SL ONE (21:00)
[2021-07-16] MEDS ORDERED: MORPHINE SULFATE INJ 2 MG/ml SYRG IV PRN ×2 (21:00)
[2021-07-16] MEDS ORDERED: ONDANSETRON HCL 4 MG/2 ML VIAL IV PRN (21:00)
[2021-07-16] MEDS: METOPROLOL TARTRATE 25 MG TAB PO SCH ×2 (21:48→22:00)
[2021-07-17] VITALS (7 sets, daily range): BP systolic 116–169; BP diastolic 47–90
[2021-07-17] MEDS: ATORVASTATIN 20 MG TAB PO SCH ×2 (01:09→23:16)
[2021-07-17] MEDS: LABETALOL HCL 5 MG/ML 4ML SYRINGE IV PRN ×2 (01:17→13:06)
[2021-07-17] MEDS ORDERED: LORA-655 PO (04:27)
[2021-07-17] MEDS ORDERED: LOSA-39 PO (04:27)
[2021-07-17] MEDS ORDERED: MET50T PO (04:27)
[2021-07-17] MEDS ORDERED: LITH300C3 PO (04:27)
[2021-07-17] MEDS ORDERED: CHOL500033 PO (04:27)
[2021-07-17 06:25] LABS: Basophils # (auto) 0 10 ^3/uL (0-0.2); Red Cell Distribution Width 13.9 % (11.8-14.3)
[2021-07-17 06:26] LABS: Basophils % (auto) 0.9 % (0.0-2.0); Eosinophils # (auto) 0.2 10 ^3/uL (0-0.8); Eosinophils % (auto) 6.5 % (0.0-7.0); Hematocrit 33.1 % (36.0-46.0); Hemoglobin 11.7 g/dL (12.2-16.2); Lymphocytes # (auto) 0.9 10 ^3/uL (0.4-5.4); Mean Corpuscular Hemoglobin 34.2 pg (28.0-32.0); Mean Corpuscular Hgb Conc. 35.3 g/dL (32.0-36.0); Mean Corpuscular Volume 97.1 fL (80.0-100.0); Monocytes # (auto) 0.3 10 ^3/uL (0-1.3); Monocytes % (auto) 9.2 % (0.0-12.0); Neutrophils # (auto) 1.8 10 ^3/uL (1.6-8.6); Neutrophils % (auto) 54.4 % (37.0-80.0); Red Blood Cells 3.41 10^6/uL (4.0-5.20); White Blood Cell 3.2 10^3/uL (4.4-10.8)
[2021-07-17 06:32] LABS: Calcium 9.7 mg/dL (8.5-10.1); Potassium 4.1 mmol/L (3.5-5.1)
[2021-07-17 06:35] LABS: BUN/Creatinine Ratio 17.6
[2021-07-17] MEDS: ASPirin-EC 81 mg tab PO SCH (09:05)
[2021-07-17] MEDS: METOPROLOL TARTRATE 25 MG TAB PO SCH ×2 (09:05→22:00)
[2021-07-17] MEDS: ENOXAPARIN SOD 40 MG/0.4 ML SYRINGE SC SCH (09:06)
[2021-07-17] MEDS ORDERED: CHOLECALCIFEROL (VITD3) 2,000 UNIT CAP/TAB PO ONE (12:00)
[2021-07-17] MEDS ORDERED: LITHIUM CARBONATE 300 MG TAB PO ONE (12:00)
[2021-07-17] MEDS ORDERED: diphenhdrAMINE HCL 12.5 MG/5 ML UD PO ONE (22:15)
[2021-07-17] MEDS: hydrALAZINE HCL 20 MG/ML VL IV PRN (23:16)
[2021-07-18 04:33] VITALS: BP 104/49
[2021-07-18 09:00] VITALS: BP 155/89
[2021-07-18] MEDS: METOPROLOL TARTRATE 25 MG TAB PO SCH ×2 (09:45→21:16)
[2021-07-18] MEDS: ENOXAPARIN SOD 40 MG/0.4 ML SYRINGE SC SCH (09:46)
[2021-07-18] MEDS: CHOLECALCIFEROL (VITD3) 2,000 UNIT CAP/TAB PO SCH (09:46)
[2021-07-18] MEDS: LITHIUM CARBONATE 300 MG TAB PO SCH (09:46)
[2021-07-18] MEDS: ASPirin-EC 81 mg tab PO SCH (09:46)
[2021-07-18 13:00] VITALS: BP 159/79
[2021-07-18 17:00] VITALS: BP 142/70
[2021-07-18] MEDS: ATORVASTATIN 20 MG TAB PO SCH (21:05)
[2021-07-18] MEDS: diphenhdrAMINE HCL 25 MG CAP PO PRN (21:05)
[2021-07-18] MEDS: hydrALAZINE HCL 20 MG/ML VL IV PRN (21:57)
[2021-07-18] MEDS: DOCUSATE SOD 100 MG CAP PO PRN (21:59)
[2021-07-18 22:00] VITALS: BP 177/85
[2021-07-19 05:00] VITALS: BP 155/68
[2021-07-19 07:52] VITALS: BP 154/79
[2021-07-19 09:00] VITALS: BP 154/79
[2021-07-19] MEDS: ASPirin-EC 81 mg tab PO SCH (09:53)
[2021-07-19] MEDS: ENOXAPARIN SOD 40 MG/0.4 ML SYRINGE SC SCH (09:54)
[2021-07-19] MEDS: LITHIUM CARBONATE 300 MG TAB PO SCH (09:54)
[2021-07-19] MEDS: CHOLECALCIFEROL (VITD3) 2,000 UNIT CAP/TAB PO SCH (09:54)
[2021-07-19] MEDS: METOPROLOL TARTRATE 25 MG TAB PO SCH ×2 (09:54→21:31)
[2021-07-19 13:00] VITALS: BP 135/71
[2021-07-19 17:00] VITALS: BP 135/62
[2021-07-19] MEDS: DOCUSATE SOD 100 MG CAP PO PRN ×2 (17:39→21:31)
[2021-07-19] MEDS: ATORVASTATIN 20 MG TAB PO SCH (21:28)
[2021-07-19] MEDS: diphenhdrAMINE HCL 25 MG CAP PO PRN (21:28)
[2021-07-19 22:00] VITALS: BP 120/54
[2021-07-20 05:30] VITALS: BP 112/60
[2021-07-20 09:00] VITALS: BP 134/73
[2021-07-20] MEDS: ASPirin-EC 81 mg tab PO SCH (09:18)
[2021-07-20] MEDS: LITHIUM CARBONATE 300 MG TAB PO SCH (09:18)
[2021-07-20] MEDS: ENOXAPARIN SOD 40 MG/0.4 ML SYRINGE SC SCH (09:19)
[2021-07-20] MEDS: CHOLECALCIFEROL (VITD3) 2,000 UNIT CAP/TAB PO SCH (09:19)
[2021-07-20] MEDS: METOPROLOL TARTRATE 25 MG TAB PO SCH ×2 (09:19→21:20)
[2021-07-20 13:00] VITALS: BP 121/58
[2021-07-20 17:00] VITALS: BP 114/59
[2021-07-20] MEDS: ATORVASTATIN 20 MG TAB PO SCH (21:19)
[2021-07-20] MEDS: diphenhdrAMINE HCL 25 MG CAP PO PRN (21:20)
[2021-07-20 22:00] VITALS: BP 118/61
[2021-07-21 05:00] VITALS: BP 121/64
[2021-07-21 09:00] VITALS: BP 129/83
[2021-07-21] MEDS: CHOLECALCIFEROL (VITD3) 2,000 UNIT CAP/TAB PO SCH (11:23)
[2021-07-21] MEDS: METOPROLOL TARTRATE 25 MG TAB PO SCH ×2 (11:24→21:18)
[2021-07-21] MEDS: ASPirin-EC 81 mg tab PO SCH (11:24)
[2021-07-21] MEDS: LITHIUM CARBONATE 300 MG TAB PO SCH (11:25)
[2021-07-21] MEDS: ENOXAPARIN SOD 40 MG/0.4 ML SYRINGE SC SCH (11:25)
[2021-07-21 13:00] VITALS: BP 106/52
[2021-07-21 17:00] VITALS: BP 102/55
[2021-07-21] MEDS: ATORVASTATIN 20 MG TAB PO SCH (21:18)
[2021-07-21] MEDS: diphenhdrAMINE HCL 25 MG CAP PO PRN (21:19)
[2021-07-21 22:00] VITALS: BP 152/67
[2021-07-22 05:04] VITALS: BP 129/67
[2021-07-22 09:27] VITALS: BP 152/77
[2021-07-22] MEDS: LITHIUM CARBONATE 300 MG TAB PO SCH (10:28)
[2021-07-22] MEDS: ASPirin-EC 81 mg tab PO SCH (10:30)
[2021-07-22] MEDS: CHOLECALCIFEROL (VITD3) 2,000 UNIT CAP/TAB PO SCH (10:32)
[2021-07-22] MEDS: METOPROLOL TARTRATE 25 MG TAB PO SCH (10:34)
[2021-07-22] MEDS: ENOXAPARIN SOD 40 MG/0.4 ML SYRINGE SC SCH (10:35)
[2021-07-22 12:02] VITALS: BP 150/72
== END 2021-07-22 16:35 | disposition home health service (06) | DRG 313 ==
LOC: EDBD 13:22 → ER 13:22 → TELE 20:53 → TELE-CENTR 23:40 → CENTRAL 07-17 00:40 → TELE-CENTR 07-20 19:13
PROVIDERS: ADMIT Hospitalist; ATTEND Hospitalist
DX: R07.89 Other chest pain (principal); I16.0 Hypertensive urgency; E11.9 Type 2 diabetes mellitus without complications; E78.5 Hyperlipidemia, unspecified; F31.9 Bipolar disorder, unspecified; F41.9 Anxiety disorder, unspecified; H40.9 Unspecified glaucoma; Z20.822 Contact with and (suspected) exposure to COVID-19; I11.0 Hypertensive heart disease with heart failure; I50.9 Heart failure, unspecified; Z86.718 Personal history of other venous thrombosis and embolism; Z79.84 Long term (current) use of oral hypoglycemic drugs
CPT/HCPCS: 36415; 71045; 80048; 80053; 80061; 83735; 84484; 85025; 93005; 93306; G0378; J3490

== ENCOUNTER → 2023-04-21 | Outpatient (CLI) | payer OTHER, MEDICAID ==
[~2023-04-21] MED LIST changes: -ALPR0.5T GT; -ALPR1TAB7 PO; -ASPI-543 PO; +CHOL500033 PO; -FER325T PO; -FLUO20CA19 PO; -HALO2CON8 PO; -IPRASOL41 IN; -LAM100T PO; +LITH300C3 PO; +LORA-655 PO; -LORA2CON5 PO; +LOSA100T58 PO; +MET50T PO; -MIDO5TAB3 PO; -MORP2INJ4 PO; -NOR10T PO; -NUTR-709 PO
[2023-04-21 10:54] LABS: Basophils # (auto) 0 10 ^3/uL (0-0.2); Eosinophils # (auto) 0.2 10 ^3/uL (0-0.8); Eosinophils % (auto) 5.3 % (0.0-7.0); Hematocrit 36.6 % (36.0-46.0); Hemoglobin 11.8 g/dL (12.2-16.2); Lymphocytes # (auto) 1.1 10 ^3/uL (0.4-5.4); Mean Corpuscular Hemoglobin 30.9 pg (28.0-32.0); Mean Corpuscular Hgb Conc. 32.3 g/dL (32.0-36.0); Mean Corpuscular Volume 95.7 fL (80.0-100.0); Monocytes # (auto) 0.4 10 ^3/uL (0-1.3); Monocytes % (auto) 9.4 % (0.0-12.0); Neutrophils # (auto) 2.2 10 ^3/uL (1.6-8.6); Neutrophils % (auto) 56.3 % (37.0-80.0); Nucleated Red Blood Cells % 0.1 %; Red Blood Cells 3.82 10^6/uL (4.0-5.20); Red Cell Distribution Width 15.8 % (11.8-14.3); White Blood Cell 3.9 10^3/uL (4.4-10.8)
[2023-04-21 11:30] LABS: Triglycerides 98 mg/dL (< 150)
[2023-04-21 11:31] LABS: LDL Cholesterol 66 mg/dL (< 100)
[2023-04-21 11:32] LABS: Cholesterol 135 mg/dL (< 200); HDL Cholesterol 54 mg/dL (40-59)
== END | disposition home or self-care (01) ==
LOC: LAB 10:33
PROVIDERS: ATTEND Internal Medicine
DX: D64.9 Anemia, unspecified (principal); I10 Essential (primary) hypertension
CPT/HCPCS: 36415; 80061; 85025

== ENCOUNTER 2023-08-21 15:02 | Inpatient (IN) | payer OTHER, MEDICAID ==
[~2023-08-21] VITALS: Ht 165.1 cm; Wt 50.0 kg
[~2023-08-21 15:02] MED LIST changes: +LOSA-535 PO; -LOSA100T58 PO
[2023-08-21] MEDS: hydrALAZINE HCL 20 MG/ML VL IV ONE (18:55)
[2023-08-21 19:18] LABS: Basophils # (auto) 0.1 10 ^3/uL (0-0.2); Basophils % (auto) 1.3 % (0.0-2.0); Eosinophils # (auto) 0.5 10 ^3/uL (0-0.8); Eosinophils % (auto) 10.8 % (0.0-7.0); Hematocrit 41.8 % (36.0-46.0); Hemoglobin 13.8 g/dL (12.2-16.2); Lymphocytes # (auto) 1.2 10 ^3/uL (0.4-5.4); Lymphocytes % (auto) 24.2 % (10.0-50.0); Mean Corpuscular Hgb Conc. 33.1 g/dL (32.0-36.0); Mean Corpuscular Volume 96.7 fL (80.0-100.0); Monocytes # (auto) 0.3 10 ^3/uL (0-1.3); Monocytes % (auto) 5.6 % (0.0-12.0); Neutrophils % (auto) 58.1 % (37.0-80.0); Nucleated Red Blood Cells % 0.1 %; Red Blood Cells 4.32 10^6/uL (4.0-5.20); Red Cell Distribution Width 14.5 % (11.8-14.3); White Blood Cell 5.1 10^3/uL (4.4-10.8)
[2023-08-21 19:28] LABS: Chloride 110 mmol/L (98-107); Potassium 4.3 mmol/L (3.5-5.1); Sodium 140 mmol/L (136-145)
[2023-08-21 19:29] LABS: Anion Gap 6 (5-15); Calcium 10.4 mg/dL (8.7-10.4); Carbon Dioxide 24 mmol/L (20-30)
[2023-08-21 19:34] LABS: Glucose 114 mg/dL (74-106)
[2023-08-21 19:41] LABS: BUN/Creatinine Ratio 20.2 (10.0-20.0); Blood Urea Nitrogen 21 mg/dL (9-23)
[2023-08-21] MEDS ORDERED: ACETAMINOPHEN 325 MG TAB PO PRN (21:15)
[2023-08-21] MEDS ORDERED: ONDANSETRON HCL 4 MG/2 ML VIAL IV PRN (21:15)
[2023-08-21] MEDS ORDERED: HYDROcodone-ACET 5/325MG TAB PO PRN (21:15)
[2023-08-21] MEDS ORDERED: hydrALAZINE HCL 20 MG/ML VL IV PRN (21:15)
[2023-08-21] MEDS: METOPROLOL TARTRATE 25 MG TAB PO SCH (23:25)
[2023-08-21 23:28] VITALS: PULSE 66; RESP 16; O2SAT 96
[2023-08-22 04:47] LABS: Basophils # (auto) 0.1 10 ^3/uL (0-0.2); Basophils % (auto) 1.3 % (0.0-2.0); Eosinophils # (auto) 0.6 10 ^3/uL (0-0.8); Hematocrit 38.8 % (36.0-46.0); Hemoglobin 13.2 g/dL (12.2-16.2); Lymphocytes # (auto) 1.2 10 ^3/uL (0.4-5.4); Lymphocytes % (auto) 25.3 % (10.0-50.0); Mean Corpuscular Hemoglobin 32.9 pg (28.0-32.0); Mean Corpuscular Volume 96.7 fL (80.0-100.0); Monocytes # (auto) 0.4 10 ^3/uL (0-1.3); Monocytes % (auto) 7.8 % (0.0-12.0); Neutrophils # (auto) 2.4 10 ^3/uL (1.6-8.6); Neutrophils % (auto) 52.6 % (37.0-80.0); Nucleated Red Blood Cells % 0.4 %; Red Blood Cells 4.02 10^6/uL (4.0-5.20); Red Cell Distribution Width 14.1 % (11.8-14.3); White Blood Cell 4.6 10^3/uL (4.4-10.8)
[2023-08-22 04:58] LABS: Chloride 111 mmol/L (98-107); Potassium 4.1 mmol/L (3.5-5.1); Sodium 141 mmol/L (136-145)
[2023-08-22 04:59] LABS: Anion Gap 4 (5-15); Calcium 10.2 mg/dL (8.5-10.1); Carbon Dioxide 26 mmol/L (20-30)
[2023-08-22 05:04] LABS: BUN/Creatinine Ratio 24.1 (10.0-20.0); Blood Urea Nitrogen 19 mg/dL (9-23); Glucose 92 mg/dL (74-106)
[2023-08-22 08:00] VITALS: PULSE 61; RESP 15; O2SAT 99
[2023-08-22] MEDS: LITHIUM CARBONATE 300 MG TAB PO SCH (10:00)
[2023-08-22] MEDS: LOSARTAN POTASSIUM 50 MG TAB PO SCH (10:00)
[2023-08-22 16:20] VITALS: BP 153/82; PULSE 62; RESP 20; TEMP 98.9; O2SAT 99
[2023-08-22 20:00] VITALS: PULSE 77; RESP 16; O2SAT 91
[2023-08-22 20:55] VITALS: BP 145/80; PULSE 77; RESP 16; TEMP 97.8; O2SAT 91
[2023-08-23 01:00] VITALS: BP 146/63; PULSE 67; RESP 20; TEMP 97.5; O2SAT 98
[2023-08-23 07:55] VITALS: O2SAT 91
[2023-08-23 08:25] VITALS: BP 136/70; PULSE 68; RESP 20; TEMP 98.5; O2SAT 98
[2023-08-23 12:20] VITALS: BP 140/76; PULSE 65; RESP 20; TEMP 99; O2SAT 97
== END 2023-08-23 17:20 | disposition home or self-care (01) | DRG 305 ==
LOC: EDBD 15:02 → ER 15:02 → OVERFLOW 21:29 → CENTRAL 08-22 15:01
PROVIDERS: ADMIT Nurse Practitioner; ATTEND Nurse Practitioner Acute Care
DX: I16.9 Hypertensive crisis, unspecified (principal); R64 Cachexia; Z68.1 Body mass index [BMI] 19.9 or less, adult; E11.9 Type 2 diabetes mellitus without complications; D64.9 Anemia, unspecified; F41.9 Anxiety disorder, unspecified; H53.8 Other visual disturbances; F31.9 Bipolar disorder, unspecified; I10 Essential (primary) hypertension; Z79.899 Other long term (current) drug therapy; Z90.710 Acquired absence of both cervix and uterus; Z91.148 Patient's other noncompliance with medication regimen for other reason; H40.9 Unspecified glaucoma
CPT/HCPCS: 36415; 70450; 80048; 80178; 83880; 84484; 85025; G0378

== ENCOUNTER 2023-12-14 15:37 | Emergency (ER) | payer OTHER, MEDICAID ==
[~2023-12-14] VITALS: Ht 167.6 cm; Wt 65.9 kg
[2023-12-14 15:40] VITALS: BP 147/82; PULSE 86; RESP 18; O2SAT 98
[2023-12-14 18:20] LABS: Basophils # (auto) 0 10 ^3/uL (0-0.2); Basophils % (auto) 0.9 % (0.0-2.0); Eosinophils # (auto) 0.5 10 ^3/uL (0-0.8); Eosinophils % (auto) 12.5 % (0.0-7.0); Hematocrit 38.6 % (36.0-46.0); Hemoglobin 12.9 g/dL (12.2-16.2); Lymphocytes # (auto) 0.9 10 ^3/uL (0.4-5.4); Lymphocytes % (auto) 23.6 % (10.0-50.0); Mean Corpuscular Hemoglobin 33.8 pg (28.0-32.0); Mean Corpuscular Hgb Conc. 33.4 g/dL (32.0-36.0); Monocytes # (auto) 0.2 10 ^3/uL (0-1.3); Monocytes % (auto) 5.8 % (0.0-12.0); Neutrophils # (auto) 2.2 10 ^3/uL (1.6-8.6); Neutrophils % (auto) 57.2 % (37.0-80.0); Nucleated Red Blood Cells % 0.2 %; Platelet Count (auto) 174 10^3/uL (140-450); Red Blood Cells 3.82 10^6/uL (4.0-5.20); Red Cell Distribution Width 13.8 % (11.8-14.3); White Blood Cell 3.8 10^3/uL (4.4-10.8)
[2023-12-14 18:33] LABS: Alanine Aminotransferase 18 U/L (7-40); Albumin 4.3 g/dL (3.2-4.8); Alkaline Phosphatase 78 U/L (46-116); Anion Gap 7 (5-15); Aspartate Aminotransferase 25 U/L (13-40); BUN/Creatinine Ratio 8.4 (10.0-20.0); Blood Urea Nitrogen 8 mg/dL (9-23); Calcium 10.5 mg/dL (8.7-10.4); Carbon Dioxide 24 mmol/L (20-31); Chloride 110 mmol/L (98-107); Glucose 113 mg/dL (74-106); Magnesium 2.1 mg/dL (1.6-2.6); Potassium 3.6 mmol/L (3.5-5.1); Sodium 141 mmol/L (136-145)
[2023-12-14 18:34] LABS: Bilirubin, Total 0.6 mg/dL (0.2-1.0)
[2023-12-14 21:23] LABS: Urine Bacteria FEW /hpf (None Seen); Urine Blood Negative /uL (Negative); Urine Clarity Clear (Clear); Urine Color Light-Yellow (Yellow); Urine Protein, UAD Negative (Negative); Urine Specific Gravity 1.011 (1.001-1.035); Urine Urobilinogen Normal (Negative); Urine WBC 19 /hpf (0 - 5); Urine pH 5.5 (5.0-9.0)
[2023-12-14] MEDS ORDERED: cefTRIAXone 1GM/50ML D5W 50 ML IV ONE (22:45)
== END 2023-12-15 00:45 | disposition left against medical advice (07) ==
LOC: EDBD 15:37 → ER 15:43
DX: I16.9 Hypertensive crisis, unspecified (principal); I10 Essential (primary) hypertension; R62.7 Adult failure to thrive; N39.0 Urinary tract infection, site not specified; R51.9 Headache, unspecified; E11.9 Type 2 diabetes mellitus without complications; Z79.899 Other long term (current) drug therapy; Z90.49 Acquired absence of other specified parts of digestive tract; Z90.710 Acquired absence of both cervix and uterus; Z91.148 Patient's other noncompliance with medication regimen for other reason
CPT/HCPCS: 36415; 70450; 71045; 80053; 81001; 83605; 83735; 83880; 84484; 85025